=== PATIENT | male | born 1960 | race Caucasian/White ===

== ENCOUNTER 2017-01-02 14:35 | Emergency (ER) | payer MEDICAID ==
[~2017-01-02] VITALS: Ht 170.2 cm; Wt 92.2 kg
[2017-01-02 15:25] VITALS: BP 154/105
--- NOTE | 2017-01-02 16:41 | NUR ---
Patient ambulated to bed 06.
--- NOTE | 2017-01-02 16:59 | NUR ---
PATIENT PRESENTS TO ED WITH C/O RIGHT SHOULDER INJURY S/P GROUND LEVEL FALL X 2 DAYS----UNABLE TO RAISE RUE PASSED ABDOMEN--SWELLING RIGHT SCAPULA AREA---NO DISCOLORATION NO OBVIOUS DEFORMITIES NOTED +2 RADIAL PULSE < 2 SEC CAP REFILL HX---DM, HTN, RX----METFORMIN 1GM PO BID, HCTZ 25MG QD . DENIES N/V/D; SKIN IS PINK/WARM/DRY; AAOX4 WITH EVEN AND STEADY GAIT; LUNGS CLEAR BL; HR EVEN AND REGULAR; PT DENIES ANY FEVER, CP, SOB, OR COUGH AT THIS TIME; PATIENT STATES PAIN OF 8/10 AT THIS TIME; VSS; PATIENT POSITIONED FOR COMFORT; HOB ELEVATED; BEDRAILS UP X2; BED DOWN. ER MD MADE AWARE OF PT STATUS.
--- NOTE | 2017-01-02 17:13 | NUR ---
Dr. Gaines evaluating patient at bedside.
--- NOTE | 2017-01-02 17:16 | NUR ---
Dr Gaines evaluating aao pt with at bedside
[2017-01-02 17:25] VITALS: BP 138/92
--- NOTE | 2017-01-02 17:25 | NUR ---
Patient discharged with v/s stable. Written and verbal after care instructions given and explained. Patient alert, oriented and verbalized understanding of instructions. Ambulatory with steady gait. All questions addressed prior to discharge. ID band removed. Patient advised to follow up with PMD. Rx of ibuprofen, cyclobenzaprine given. Patient educated on indication of medication including possible reaction and side effects. Opportunity to ask questions provided and answered.
== END 2017-01-02 17:25 | disposition home or self-care (01) ==
LOC: MED 14:35
DX: S40.011A Contusion of right shoulder, initial encounter (principal); E11.9 Type 2 diabetes mellitus without complications; I10 Essential (primary) hypertension; W18.30XA Fall on same level, unspecified, initial encounter; Y93.89 Activity, other specified; Y92.89 Other specified places as the place of occurrence of the external cause; Y99.8 Other external cause status

== ENCOUNTER 2018-07-29 14:28 | Emergency (ER) | payer MEDICAID ==
[~2018-07-29] VITALS: Ht 172.7 cm; Wt 90.7 kg
[2018-07-29 14:43] VITALS: BP 135/75
--- NOTE | 2018-07-29 14:54 | NUR ---
WAIT IN LOBBY. OLD LAC WOUND L FOOT, NO BLEEDING.
--- NOTE | 2018-07-29 15:11 | NUR ---
Patient ambulated to bed 12 with family. RN evaluating patient at bedside.
--- NOTE | 2018-07-29 15:20 | NUR ---
PT C/O WOUND LEFT FOOT S/P STEPPED ON GLASS X 1 WEEK. WOUND APPEARS OPEN WITH YELLOW EXUDATE; RED EDGES SURROUNDING WOUND. PT COMPLAINS OF PAIN AT AREA WHEN WALKING. DENIES FEVERS, CHILLS.
--- NOTE | 2018-07-29 17:48 | NUR ---
Patient discharged with v/s stable. Written and verbal after care instructions given and explained. Patient alert, oriented and verbalized understanding of instructions. Ambulatory with steady gait. All questions addressed prior to discharge. ID band removed. Patient advised to follow up with PMD. Rx of BACTRIM AND KEFLEX given. Patient educated on indication of medication including possible reaction and side effects. Opportunity to ask questions provided and answered.
[2018-07-29 17:50] VITALS: BP 142/98
== END 2018-07-29 17:48 | disposition home or self-care (01) ==
LOC: MED 14:28
DX: S91.302A Unspecified open wound, left foot, initial encounter (principal); E11.9 Type 2 diabetes mellitus without complications; I10 Essential (primary) hypertension; W22.8XXA Striking against or struck by other objects, initial encounter; Y93.89 Activity, other specified; Y92.099 Unspecified place in other non-institutional residence as the place of occurrence of the external cause; Y99.8 Other external cause status
CPT/HCPCS: 73630; 82948; 90471; 90715; 99283; Q0092

== ENCOUNTER 2018-11-11 00:33 | Emergency (ER) | payer MEDICAID ==
[~2018-11-11] VITALS: Ht 167.6 cm; Wt 91.6 kg
[2018-11-11 00:36] VITALS: BP 227/100
--- NOTE | 2018-11-11 00:36 | NUR ---
TO BED # 08 AMBULATORY
--- NOTE | 2018-11-11 00:54 | NUR ---
58/M PRESENTS TO ED WITH , S/P CRUSH INJURY ON R BIG TOE AT WORK. R BIG TOE NOTED WITH BRUISING THROUGHOUT, WITH SWELLING, +CMS. PT AWAKE AND ALERT, AMBULATORY, SKIN NORMAL WARM AND DRY, RR EVEN AND UNLABORED. HX DM, HTN
--- NOTE | 2018-11-11 00:55 | NUR ---
XR AT BEDSIDE
[2018-11-11] MEDS ORDERED: KETOROLAC 60 MG/2 ML VIAL IM ONE (01:35)
--- NOTE | 2018-11-11 01:58 | NUR ---
PT 1ST AND 2ND TOE ON R FOOT TIED TOGETHER WITH TAPE, PLACED IN ORTHOPEDIC SHOE SIZE MENS LARGE. +CSM
[2018-11-11 02:15] VITALS: BP 227/100
== END 2018-11-11 02:15 | disposition home or self-care (01) ==
LOC: MED 00:33
DX: S92.424A Nondisplaced fracture of distal phalanx of right great toe, initial encounter for closed fracture (principal); I10 Essential (primary) hypertension; E11.9 Type 2 diabetes mellitus without complications; F17.210 Nicotine dependence, cigarettes, uncomplicated; W20.8XXA Other cause of strike by thrown, projected or falling object, initial encounter; Y93.89 Activity, other specified; Y92.89 Other specified places as the place of occurrence of the external cause; Y99.8 Other external cause status
CPT/HCPCS: 73660; 82948; 96372; 99283; J1885; Q0092

== ENCOUNTER 2020-10-30 15:38 | Emergency (ER) | payer MEDICAID ==
[~2020-10-30] VITALS: Ht 167.6 cm; Wt 89.4 kg
[2020-10-30 15:46] VITALS: BP 140/72
--- NOTE | 2020-10-30 16:14 | NUR ---
60 YEAR OLD MALE STATES HE WAS REFERED BY CLINIC FOR ELEVATED LABS; K 6.3, BUN 41. PT ALSO COMPLAINS OF CHEST PALPITATION WITH PAIN 09/07. PT AOX4, BREATHING EVEN AND UNLABORED, SKIN WARM AND DRY. BED IN LOWEST POSITIN, LOCKED, BED RAIL UPX1. PMH - HTN, DM2, HLD ALLERGIES - NKA
[2020-10-30 16:26] LABS: BASOPHILS % (AUTO) 0.3 % (0.0-2.0); EOSINOPHILS # (AUTO) 0.1 K/uL (0-0.4); EOSINOPHILS % (AUTO) 2.1 % (0.0-4.0); HEMATOCRIT 30.4 % (36-52); HEMOGLOBIN 10.2 g/dL (12.0-18.0); LYMPHOCYTES # (AUTO) 1.3 K/uL (2.0-11.5); LYMPHOCYTES % (AUTO) 23.6 % (20.5-51.1); MEAN CORPUSCULAR HEMOGLOBIN 32 pg (27-31); MEAN CORPUSCULAR HGB CONC 34 g/dL (33-37); MEAN CORPUSCULAR VOLUME 93.5 fL (80-94); MONOCYTES # (AUTO) 0.5 K/uL (0.8-1.0); MONOCYTES % (AUTO) 8.8 % (1.7-9.3); NEUTROPHILS # (AUTO) 3.7 K/uL (1.8-7.7); NEUTROPHILS % (AUTO) 65.2 % (42.2-75.2); PLATELET COUNT (AUTO) 175 K/uL (140-450); RED BLOOD CELL COUNT(AUTO) 3.25 MIL/uL (4.20-6.10); RED CELL DISTRIBUTION WIDTH 13.1 % (11.6-13.7); WHITE BLOOD COUNT (AUTO) 5.7 K/uL (4.8-10.8)
[2020-10-30 16:48] LABS: ALBUMIN 3.5 g/dL (3.4-5.0); ANION GAP 11.6 (8-16); CREATININE 1.1 mg/dL (0.6-1.3); POTASSIUM 4.6 mmol/L (3.5-5.1); TOTAL BILIRUBIN 0.2 mg/dL (0.0-1.0)
[2020-10-30 16:55] LABS: APPEARANCE,URINE CLEAR (CLEAR); BILIRUBIN,URINE NEGATIVE (NEGATIVE); BLOOD, URINE NEGATIVE (NEGATIVE); COLOR,URINE YELLOW (YELLOW); LEUKOCYTE ESTERASE ,URINE NEGATIVE (NEGATIVE); NITRITE, URINE NEGATIVE (NEGATIVE); UGLUCOSE 3+ (NEGATIVE)
[2020-10-30 18:38] VITALS: BP 115/62
--- NOTE | 2020-10-30 18:39 | NUR ---
Patient discharged with v/s stable. Written and verbal after care instructions about potassium content i foodgiven and explained. Patient verbalized understanding. Ambulatory with steady gait. All questions addressed prior to discharge. Advised to follow up with PMD.
== END 2020-10-30 18:35 | disposition home or self-care (01) ==
LOC: MED 15:38
DX: R79.9 Abnormal finding of blood chemistry, unspecified (principal); I10 Essential (primary) hypertension; E11.9 Type 2 diabetes mellitus without complications; E78.5 Hyperlipidemia, unspecified; F17.290 Nicotine dependence, other tobacco product, uncomplicated; Z71.6 Tobacco abuse counseling
CPT/HCPCS: 36415; 71045; 80053; 81003; 84484; 85025; 93005; 99285

== ENCOUNTER 2021-08-30 19:36 | Emergency (ER) | payer MEDICAID, OTHER ==
[~2021-08-30] VITALS: Ht 170.2 cm; Wt 86.6 kg
[2021-08-30 19:46] VITALS: BP 197/90
--- NOTE | 2021-08-30 20:06 | NUR ---
PATIENT TO LOBBY
[2021-08-30] MEDS ORDERED: SULFAMETH/TRIMETH DS 800/160MG 1 TAB PO ONE (21:35)
[2021-08-30] MEDS ORDERED: cephALEXin 500 MG CAP PO ONE (21:35)
[2021-08-30] MEDS ORDERED: ACETAMINOPHEN 325 MG TAB PO ONE (21:45)
--- NOTE | 2021-08-30 22:34 | NUR ---
MEDICATION GIVEN TO PT IN CHAIR A
[2021-08-30] MEDS ORDERED: CEPH-588 PO (22:39)
[2021-08-30] MEDS ORDERED: SULF-59 PO (22:39)
[2021-08-30 23:07] VITALS: BP 155/89
--- NOTE | 2021-08-30 23:08 | NUR ---
Patient discharged with v/s stable. Written and verbal after care instructions given and explained. Patient alert, oriented and verbalized understanding of instructions. Ambulatory with steady gait. All questions addressed prior to discharge. ID band removed. Patient advised to follow up with PMD. Rx of KEFLEX AND BACTRIM DS given. Patient educated on indication of medication including possible reaction and side effects. Opportunity to ask questions provided and answered. WORK NOTE PROVIDED
== END 2021-08-30 23:08 | disposition home or self-care (01) ==
LOC: MED 19:36
DX: L97.519 Non-pressure chronic ulcer of other part of right foot with unspecified severity (principal); E11.9 Type 2 diabetes mellitus without complications; I10 Essential (primary) hypertension
CPT/HCPCS: 73630; 90471; 90715; 99284

== ENCOUNTER 2023-11-18 16:11 | Inpatient (IN) | payer OTHER ==
[~2023-11-18] VITALS: Ht 180.3 cm; Wt 87.1 kg
[~2023-11-18 16:11] MED LIST: CEPH-588 PO; SULF-59 PO
[2023-11-18 16:20] VITALS: BP 89/54; PULSE 136; RESP 24; TEMP 101.5; O2SAT 96
--- NOTE | 2023-11-18 16:32 | NUR ---
PT BIB WHEELCHAIR TO BED 5
[2023-11-18 17:10] LABS: BASOPHILS % (AUTO) 0.1 % (0.0-2.0); EOSINOPHILS % (AUTO) 0.1 % (0.0-4.0); HEMATOCRIT 37.3 % (36-52); HEMOGLOBIN 12.5 g/dL (12.0-18.0); LYMPHOCYTES # (AUTO) 0.6 K/uL (2.0-11.5); LYMPHOCYTES % (AUTO) 6.9 % (20.5-51.1); MEAN CORPUSCULAR HEMOGLOBIN 30 pg (27-31); MEAN CORPUSCULAR HGB CONC 34 g/dL (33-37); MEAN CORPUSCULAR VOLUME 89.3 fL (80-94); MONOCYTES # (AUTO) 0.3 K/uL (0.8-1.0); MONOCYTES % (AUTO) 3.4 % (1.7-9.3); NEUTROPHILS # (AUTO) 7.6 K/uL (1.8-7.7); NEUTROPHILS % (AUTO) 89.5 % (42.2-75.2); PLATELET COUNT (AUTO) 201 K/uL (140-450); RED BLOOD CELL COUNT(AUTO) 4.18 MIL/uL (4.20-6.10); RED CELL DISTRIBUTION WIDTH 13.9 % (11.6-13.7); WHITE BLOOD COUNT (AUTO) 8.5 K/uL (4.8-10.8)
[2023-11-18 17:21] LABS: INR 0.97 (0.8-1.2); PARTIAL THROMBOPLASTIN TIME 25.3 secs (22-35.6); PROTHROMBIN TIME 10.2 secs (10.8-13.4)
[2023-11-18 17:22] LABS: CALCIUM 9.2 mg/dL (8.5-10.1); CARBON DIOXIDE 22.3 mmol/L (21-32); CREATININE 1.3 mg/dL (0.6-1.3); POTASSIUM 4.3 mmol/L (3.5-5.1)
[2023-11-18 17:34] LABS: BILIRUBIN,URINE NEGATIVE (NEGATIVE); BLOOD, URINE 1+ (NEGATIVE); COLOR,URINE YELLOW (YELLOW); LEUKOCYTE ESTERASE ,URINE NEGATIVE (NEGATIVE); NITRITE, URINE NEGATIVE (NEGATIVE); PH,URINE 7.5 (5.0-9.0); PROTEIN,URINE 2+ (NEGATIVE); UGLUCOSE 3+ (NEGATIVE); UROBILINOGEN,URINE 0.2 EU/dL (0.2 - 1)
[2023-11-18 17:36] LABS: LACTIC ACID 2.6 mmol/L (0.4-2.0)
[2023-11-18 17:38] LABS: ALANINE AMINOTRANSFERASE 30 U/L (12-78); ALBUMIN 3.3 g/dL (3.4-5.0); ALKALINE PHOSPHATASE 89 U/L (50-136); ASPARTATE AMINOTRANSFERASE 14 U/L (15-37); BILIRUBIN,DIRECT 0.2 mg/dL (0.0-0.3); CREATINE KINASE, TOTAL 17 U/L (39-308); TOTAL BILIRUBIN 0.8 mg/dL (0.0-1.0); TOTAL PROTEIN, SERUM 7.2 g/dL (6.4-8.2)
[2023-11-18 17:39] LABS: APPEARANCE,URINE CLOUDY (CLEAR)
[2023-11-18 17:41] LABS: BACTERIA,URINE 1+ /HPF (None Seen); RBC,URINE 0-5 /HPF (0-5); SQUAMOUS EPITHELIAL CELL,UR 0-3 (FEW) /LPF (0-3 (FEW)); WBC,URINE 0-5 /HPF (0-5)
[2023-11-18 17:42] LABS: MUCUS,URINE None Seen /LPF (None Seen)
[2023-11-18] MEDS ORDERED: IBUPROFEN 800 MG TAB ONE (18:36)
[2023-11-18] MEDS: KETOROLAC 30 MG/ML VIAL IVP ONE (18:43)
[2023-11-18] MEDS ORDERED: IBUP-2213 PO (18:44)
[2023-11-18] MEDS ORDERED: ACET-8905 PO (18:44)
[2023-11-18] MEDS: NACL 0.9% 2,000 ML IV ONE (18:44)
[2023-11-18] MEDS ORDERED: ONDA8TAB87 PO (18:44)
[2023-11-18] MEDS ORDERED: PENI-319 PO (18:44)
[2023-11-18] MEDS: IBUPROFEN 800 MG TAB PO ONE (18:46)
--- NOTE | 2023-11-18 18:55 | NUR ---
63 YO M; NKA; PMHX HTN, DM, L BKA; STATELESS SPEAKING; AMBULATORY WITH PROSTHETIC; PATIENT BIB SPOUSE TO ED C/O LEFT SIDE CHEEK/TOOTHACE WITH SWELLING X 3 DAYS, +FEVER, +CHILLS & +NAUSEA, DENIES VOMITING OR DIARRHEA. HAD A DENTAL APPOINTMENT THIS AFTERNOON HOWEVER DECIDED TO COME TO ED. SKIN IS PALE/COOL/DIAPHORETIC; AAOX4; LUNGS CLEAR BL; HR EVEN AND REGULAR; PATIENT STATES HAVING SHARP/CONSTANT/NON RADIATING PAIN OF 8/10 AT THIS TIME; VSS; PATIENT POSITIONED FOR COMFORT; HOB ELEVATED; BEDRAILS UP X2; BED DOWN; SPOUSE IS AT BEDSIDE; CALL LIGHT WITHIN REACH; ER MD MADE AWARE OF PT STATUS.
--- NOTE | 2023-11-18 19:23 | NUR ---
Pt report given to PARISA Kemp RN. Transfer of care at this time.
--- NOTE | 2023-11-18 21:26 | NUR ---
FAMILY AT BEDSIDE ALL QUESTIONS ANSWERED
[2023-11-18] MEDS: NACL 0.9% 1,000 ML IV ONE ×2 (21:28)
--- NOTE | 2023-11-18 21:29 | NUR ---
family has concern regarding patient's admission or discharge status, per charge nurse, we are still figuring it out either patient stays or discharge.
--- NOTE | 2023-11-18 21:33 | NUR ---
DR. FELTON WITH FAMILY TO DISCUSS POC. FAMILY VERBALIZES FULL UNDERSTANDING. AWAITING LITER OF FLUID TO COMPLETE. THEN DECISION WILL BE MADE TO ADMIT OR NOT.
--- NOTE | 2023-11-18 22:05 | NUR ---
PATIENT'S SPOUSE PROVIDED UPDATED CONTACT INFORMATION - AMBIKA MENDOZA, PH: [phone] (CELL) - ROGER PENN, PH: [phone] (SON)
[2023-11-19] VITALS (7 sets, daily range): BP systolic 127–156; BP diastolic 69–77; PULSE 78–111; RESP 18–20; TEMP 96.9–98.2; O2SAT 95–99
[2023-11-19] MEDS ORDERED: ONDANSETRON 4 MG/2 ML VIAL IVP PRN
[2023-11-19] MEDS ORDERED: MORPHINE SULFATE 2 MG/ML SYR IVP PRN
[2023-11-19] MEDS ORDERED: ACETAMINOPHEN 325 MG TAB PO PRN
[2023-11-19] MEDS ORDERED: LORazepam 2 MG/ML VIAL IVP PRN
[2023-11-19] MEDS ORDERED: cefTRIAXone 1,000 MG VIAL ONE (00:11)
[2023-11-19] MEDS: NACL 0.9% 1,000 ML IV SCH (00:25)
--- NOTE | 2023-11-19 00:43 | NUR ---
REPORT CALLED TO AGA EL WITH FULL RETURNED VERBAL UNDERSTANDING. PT GOING TO 111-A
--- NOTE | 2023-11-19 00:53 | NUR ---
Patient will be admitted to care of DR. DAMIAN. Admited to [facility]. Will go to [id number]. Belongings list completed. Report to AGA EL.
--- NOTE | 2023-11-19 00:55 | NUR ---
ATTEMPTED TO CONTACT PATIENT'S SPOUSE AMBIKA AND INFORM HER OF ADMISSION TO [facility]. - NO ANSWER
--- NOTE | 2023-11-19 01:00 | NUR ---
PATIENT ADMITTED FROM ED, CAME VIA GURNEY, TRANSFERRED TO BED X3 STAFF, PATIENT IS AWAKE, ALERT AND ORIENTED X4, ADMITTING DIAGNOSIS IS DENTAL INFECTION, LEFT SIDE OF FACE AND UPPER LIPS, SWOLLEN, PATIENT DENIES PAIN UPON INITIAL ASSESSMENT, ON O2 @2LPM NC, NO S/S OF DISTRESS NOTED, PATIENT HAS LEFT BKA, IVF INFUSING ORDERED, VITALS TAKEN, MRSA SWAB DONE, SKIN CHECK DONE, SKIN IS INTACT, PATIENT ORIENTED TO ROOM SETTING, PATIENT GIVEN URINAL, CALL LIGHT WITHIN REACH.
[2023-11-19] MEDS: HYDROcodone/APAP 5/325 MG 1 TAB TAB PO PRN (02:22)
--- NOTE | 2023-11-19 02:22 | NUR ---
PATIENT C/O OF 5/10 TOOTHACHE, PRN NORCO GIVEN ORDERED.
[2023-11-19] MEDS: PIPERACILLIN/TAZOBACTAM 3.375 GM in DEXTROSE 5% 50 ML IV SCH (04:27)
[2023-11-19] MEDS: PIPERACILLIN/TAZOBACTAM 3.375 GM VIAL IV ONE (04:27)
--- NOTE | 2023-11-19 04:27 | NUR ---
SCHEDULED IV ANTIBIOTIC GIVEN ORDERED.
[2023-11-19 06:29] LABS: BASOPHILS % (AUTO) 0.2 % (0.0-2.0); EOSINOPHILS % (AUTO) 0.2 % (0.0-4.0); HEMATOCRIT 33.6 % (36-52); HEMOGLOBIN 11.3 g/dL (12.0-18.0); LYMPHOCYTES # (AUTO) 0.5 K/uL (2.0-11.5); LYMPHOCYTES % (AUTO) 9.1 % (20.5-51.1); MEAN CORPUSCULAR HEMOGLOBIN 30 pg (27-31); MEAN CORPUSCULAR HGB CONC 34 g/dL (33-37); MEAN CORPUSCULAR VOLUME 89.5 fL (80-94); MONOCYTES # (AUTO) 0.1 K/uL (0.8-1.0); MONOCYTES % (AUTO) 2.1 % (1.7-9.3); NEUTROPHILS # (AUTO) 5.1 K/uL (1.8-7.7); NEUTROPHILS % (AUTO) 88.4 % (42.2-75.2); PLATELET COUNT (AUTO) 161 K/uL (140-450); RED BLOOD CELL COUNT(AUTO) 3.75 MIL/uL (4.20-6.10); RED CELL DISTRIBUTION WIDTH 14.1 % (11.6-13.7); WHITE BLOOD COUNT (AUTO) 5.8 K/uL (4.8-10.8)
--- NOTE | 2023-11-19 06:31 | NUR ---
PATIENT IS ASLEEP, VISIBLE CHEST RISE AND FALL, NO S/S OF DISTRESS NOTED, IVF INFUSING ORDERED, NEEDS MET THROUGHOUT THE SHIFT, PATIENT REMAINS STABLE.
[2023-11-19 06:46] LABS: ALBUMIN 2.7 g/dL (3.4-5.0); ANION GAP 12.5 (8-16); CALCIUM 8.7 mg/dL (8.5-10.1); CARBON DIOXIDE 25.5 mmol/L (21-32); MAGNESIUM 1.5 mg/dL (1.8-2.4); TOTAL BILIRUBIN 0.7 mg/dL (0.0-1.0); TOTAL PROTEIN, SERUM 6.4 g/dL (6.4-8.2)
--- NOTE | 2023-11-19 07:00 | NUR ---
RECEIVED PT FROM PALEONTOLOGY TEACHER FOR CONTINUITY OF CARE. ALERT AND ORIENTED X 4. RESP. EVEN AND UNLABORED. ON 2L/NC. PIV TO LAC 18G. SKIN INTACT. LT FACE SWELLING. AMBULATORY. CONTINENT TO BOWEL AND BLADDER. NO C/O PAIN OR DISCOMFORT. CALL LIGHT KEPT WITHIN REACH. CONTINUE PLAN OF CARE.
--- NOTE | 2023-11-19 07:20 | NUR ---
ROUNDED ON PT. PT FOUND ON 2L NC BUT WAS CHANGED TO RA AND HAS A SAT OF 99. NO SIGN OF RESP DISTRESS. WILL CONTINUE TO MONITOR PT THROUGHOUT SHIFT..
[2023-11-19] MEDS: ENOXAPARIN 40 MG/0.4 ML SYR SUBQ SCH (08:08)
--- NOTE | 2023-11-19 11:53 | NUR ---
SEEN BY DR. DAMIAN.
[2023-11-19] MEDS ORDERED: DEXTROSE 50% 50 ML SYR IVP PRN (11:55)
[2023-11-19] MEDS ORDERED: hydrALAZINE 25 MG TAB PO PRN (11:55)
[2023-11-19] MEDS ORDERED: METF-346 PO (12:01)
[2023-11-19] MEDS ORDERED: ASPI-1822 PO (12:01)
[2023-11-19] MEDS ORDERED: AMLO10TA89 PO (12:01)
--- NOTE | 2023-11-19 15:48 | NUR ---
PATIENT HAS BEEN SCREENED AND CATEGORIZED MODERATE NUTRITION RISK. PATIENT WILL BE SEEN WITHIN 3-5 DAYS OF ADMISSION. 11/22/23 11/24/[address]
[2023-11-19] MEDS: BLOOD GLUCOSE MONITORING 1 DEV DEV FS SCH (17:30)
[2023-11-19] MEDS: INSULIN LISPRO SLIDING SCALE 100 UNITS/ML VIAL SUBQ PRN (17:36)
--- NOTE | 2023-11-19 19:24 | NUR ---
ENDORSED TO DRAMATIC AGENT FOR CONTINUITY OF CARE. REMAINS STABLE.
--- NOTE | 2023-11-19 19:25 | NUR ---
RECEIVED REPORT FROM DAY NURSE FOR CONTINUITY OF CARE. PATIENT IS AWAKE AND ALERT, DENIES PAIN AT THIS TIME, NO S/S OF DISTRESS NOTED, IV SITE ON RAC, PATENT AND INTACT, FLUSH WITHOUT RESISTANCE, CALL LIGHT WITHIN REACH.
--- NOTE | 2023-11-19 20:23 | NUR ---
SCHEDULED IV ANTIBIOTIC GIVEN ORDERED.
[2023-11-19] MEDS: MEDS-TO-BEDS MC SCH (20:59)
[2023-11-19] MEDS: MAG SULF 2000 MG/WATER PREMIX 50 ML IV SCH (20:59)
[2023-11-20 04:00] VITALS: BP 148/90; PULSE 96; RESP 18; TEMP 98.5; O2SAT 97
--- NOTE | 2023-11-20 06:32 | NUR ---
PATIENT'S BG 197MG/DL, INSULIN PER SLIDING SCALE GIVEN ORDERED. PATIENT C/O 5/10 PAIN ON LEFT SIDE OF FACE/TOOTHACHE, PRN NORCO GIVEN ORDERED.
[2023-11-20 07:07] VITALS: O2SAT 96
--- NOTE | 2023-11-20 07:15 | NUR ---
RECEIVED PT FROM RES HABILITATION ASSISTANT FOR CONTINUITY OF CARE. ALERT AND ORIENTED X 4. RESP. EVEN AND UNLABORED. ON ROOM AIR. SKIN INTACT. LT FACE SWELLING. CONTINENT TO BOWEL AND BLADDER. NO C/O PAIN OR DISCOMFORT. CALL LIGHT KEPT WITHIN REACH. CONTINUE PLAN OF CARE.
--- NOTE | 2023-11-20 07:16 | NUR ---
ENDORSED PATIENT TO DAY NURSE FOR CONTINUITY OF CARE. PATIENT IS STABLE.
[2023-11-20 08:00] VITALS: BP 126/68; PULSE 89; RESP 18; TEMP 98.5; O2SAT 96
--- NOTE | 2023-11-20 08:20 | NUR ---
LOVENOX GIVEN TO LT ARM. TOLERATED WELL.
[2023-11-20 16:00] VITALS: BP 118/76; PULSE 82; RESP 18; TEMP 98.7; O2SAT 96
--- NOTE | 2023-11-20 16:42 | NUR ---
SEEN BY DR. DAMIAN.
--- NOTE | 2023-11-20 17:04 | NUR ---
BS CHECKED 250. HUMALOG 4 UNITS GIVEN. TOLERATED WELL.
[2023-11-20] MEDS ORDERED: LACT1CAP81 PO (17:45)
[2023-11-20] MEDS ORDERED: AMOX-1230 PO (17:45)
--- NOTE | 2023-11-20 18:05 | NUR ---
ORTHOSTATIC TAKEN. SITTING: BP 112/81, P 85 LYING: BP 131/75, P 89, STANDING 123/69 P 84.
[2023-11-20] MEDS ORDERED: ACET-9525 PO (18:10)
--- NOTE | 2023-11-20 18:35 | NUR ---
PT. LEFT DISCHARGED TO HOME. TRANSPORTED BY PRIVATE VEHICLE. AMBULATORY. ALERT AND ORIENTED X 4. ID BAND AND IV REMOVED. DISCHARGE PAPERWORKS DISCUSS AND SIGNED BY PT. ALL PERSONAL BELONGINGS TAKEN. REMAINS STABLE.
== END 2023-11-20 18:35 | disposition home or self-care (01) | DRG 720 ==
LOC: MED 16:11 → MTU 11-19 00:01
PROVIDERS: ADMIT Hospitalist; ATTEND Hospitalist
DX: A41.9 Sepsis, unspecified organism (principal); E11.00 Type 2 diabetes mellitus with hyperosmolarity without nonketotic hyperglycemic-hyperosmolar coma (NKHHC); E44.0 Moderate protein-calorie malnutrition; E87.1 Hypo-osmolality and hyponatremia; R71.0 Precipitous drop in hematocrit; E66.9 Obesity, unspecified; K04.7 Periapical abscess without sinus; E78.5 Hyperlipidemia, unspecified; I10 Essential (primary) hypertension; Z68.26 Body mass index [BMI] 26.0-26.9, adult; Z79.899 Other long term (current) drug therapy; Z79.82 Long term (current) use of aspirin
CPT/HCPCS: 36415; 70487; 71045; 80048; 80053; 80076; 81001; 82550; 82948; 83036; 83605; 83735; 83880; 84484; 85025; 85610; 85730; 87040; 87081; 87086; 93005; 96374; 96375; 99285; J0696; J1650; J1815; J1885; J2543; J3475; J7060; Q9967